=== PATIENT | female | born 1975 | race Caucasian/White ===

== ENCOUNTER → 2024-06-07 | Outpatient (CLI) | payer OTHER | END | disposition home or self-care (01) | LOC: MAMMO 15:00 | PROVIDERS: ATTEND Nurse Practitioner Women's Health | DX: Z12.31 Encounter for screening mammogram for malignant neoplasm of breast (principal) ==

== ENCOUNTER → 2025-01-23 | Outpatient (CLI) | payer OTHER | END | disposition home or self-care (01) | LOC: US 12:35 | PROVIDERS: ATTEND Nurse Practitioner Women's Health | DX: N95.0 Postmenopausal bleeding (principal) ==